=== PATIENT | male | born 1950 | race Two or more races ===

== ENCOUNTER 2023-05-07 10:15 | Inpatient (IN) | payer OTHER ==
[~2023-05-07] VITALS: Ht 165.1 cm; Wt 85.7 kg
[2023-05-07] MEDS ORDERED: CARDESARTAN (11:41)
[2023-05-07] MEDS ORDERED: GORDON'S VITE A75 GM PO (11:42)
[2023-05-07 16:28] LABS: INR 1.02; PROTHROMBIN TIME 10.7 SECONDS (9.0-11.5)
[2023-05-15 18:50] LABS: HEMATOCRIT 39.4 % (39.0-48.0); HEMOGLOBIN 13.7 g/dL (13-16.00); MEAN CELL VOLUME 91.7 fL (80.0-100.00); MEAN CORPUSCULAR HGB CONC 34.9 g/dl (32.0-36.0); PLATELET COUNT 151 K/uL (150-450); RED BLOOD COUNT 4.29 M/uL (4.00-6.00); RED CELL DISTRIBUTION WIDTH 13.6 % (11.5-14.5)
[2023-05-15 19:12] LABS: ALBUMIN 3.2 gm/dL (3.4-5.0); CALCIUM 8.7 mg/dL (8.5-10.1); GFR 73.45; PHOSPHOROUS 3.3 mg/dL (2.5-4.9); POTASSIUM 3.33 mEq/L (3.5-5.1)
[2023-05-15 20:14] LABS: ABG PH 7.423 (7.35-7.45); ABG PO2 194.9 mmHg (80-100); ABG pCO2 37.5 mmHg (35-45); BASE EXCESS -0.1 mmol/l; BICARBONATE 23.9 mmol/l (23-25); SaO2 99.7 %; Tco2 25.1 mmol/l; allen test SATISFACTORY; puncture site RADIAL LEFT
[2023-05-15 20:15] LABS: o2 32 %
[2023-05-16 07:50] LABS: HEMATOCRIT 37.5 % (39.0-48.0); HEMOGLOBIN 13.2 g/dL (13-16.00); MEAN CELL VOLUME 91.4 fL (80.0-100.00); MEAN CORPUSCULAR HEMOGLOBIN 32.2 pg (27.00-32.0); MEAN CORPUSCULAR HGB CONC 35.2 g/dl (32.0-36.0); PLATELET COUNT 149 K/uL (150-450); RED CELL DISTRIBUTION WIDTH 13.6 % (11.5-14.5)
[2023-05-16 08:22] LABS: ALBUMIN 3.1 gm/dL (3.4-5.0); CALCIUM 8.6 mg/dL (8.5-10.1); CREATININE SERUM 0.96 mg/dL (0.70-1.30); GFR 76.99; MAGNESIUM 2.1 mg/dL (1.8-2.4); PHOSPHOROUS 3.1 mg/dL (2.5-4.9); POTASSIUM 3.73 mEq/L (3.5-5.1)
[2023-05-17 08:24] LABS: CALCIUM 8.5 mg/dL (8.5-10.1); CREATININE SERUM 0.91 mg/dL (0.70-1.30); GFR 81.9; MAGNESIUM 2.3 mg/dL (1.8-2.4); PHOSPHOROUS 2.4 mg/dL (2.5-4.9); POTASSIUM 3.73 mEq/L (3.5-5.1)
[2023-05-17 08:53] LABS: HEMATOCRIT 35.1 % (39.0-48.0); HEMOGLOBIN 12.4 g/dL (13-16.00); MEAN CORPUSCULAR HEMOGLOBIN 32.5 pg (27.00-32.0); MEAN CORPUSCULAR HGB CONC 35.4 g/dl (32.0-36.0); PLATELET COUNT 146 K/uL (150-450); RED BLOOD COUNT 3.82 M/uL (4.00-6.00); RED CELL DISTRIBUTION WIDTH 13.6 % (11.5-14.5)
[2023-05-18] MEDS ORDERED: HYOSCYAMINE0.125 M1 SL (15:25)
== END 2023-05-18 16:30 | disposition home or self-care (01) | DRG 331 ==
LOC: SURH 05-15 07:00 → O/R 05-15 09:09 → SURH 05-15 10:15
PROVIDERS: Internal Medicine Geriatric Medicine; ADMIT Surgery; ATTEND Surgery
PROC: 0DBP4ZZ Excision of Rectum, Percutaneous Endoscopic Approach (ICD-10-PCS; 2023-05-15)
PROC: 0DJD8ZZ Inspection of Lower Intestinal Tract, Via Natural or Artificial Opening Endoscopic (ICD-10-PCS; 2023-05-15)
PROC: 4A12X4Z Monitoring of Cardiac Electrical Activity, External Approach (ICD-10-PCS; 2023-05-15)
PROC: 3E0F7SF Introduction of Other Gas into Respiratory Tract, Via Natural or Artificial Opening (ICD-10-PCS; 2023-05-15)
PROC: 0DTN4ZZ Resection of Sigmoid Colon, Percutaneous Endoscopic Approach (ICD-10-PCS; principal; 2023-05-15 07:00)
DX: K57.32 Diverticulitis of large intestine without perforation or abscess without bleeding (principal); K66.0 Peritoneal adhesions (postprocedural) (postinfection); R10.32 Left lower quadrant pain; R19.4 Change in bowel habit; E83.39 Other disorders of phosphorus metabolism; D72.828 Other elevated white blood cell count; G47.39 Other sleep apnea; I11.9 Hypertensive heart disease without heart failure